=== PATIENT | female | born 1940 | race Two or more races ===

== ENCOUNTER 2023-09-21 10:25 | Inpatient (IN) | payer OTHER ==
[~2023-09-21] VITALS: Ht 147.3 cm; Wt 74.3 kg
[2023-09-21] MEDS: ONDANSETRON HCL 4 MG/2 ML VIAL IV ONE (10:43)
[2023-09-21] MEDS: MORPHINE SULFATE INJ 2 MG/ml SYRG IV ONE (10:49)
[2023-09-21 10:55] LABS: Basophils # (auto) 0 10 ^3/uL (0-0.2); Basophils % (auto) 0.3 % (0.0-2.0); Eosinophils # (auto) 0 10 ^3/uL (0-0.8); Eosinophils % (auto) 0.6 % (0.0-7.0); Hematocrit 45.3 % (36.0-46.0); Hemoglobin 15.1 g/dL (12.2-16.2); Lymphocytes % (auto) 12.4 % (10.0-50.0); Mean Corpuscular Hemoglobin 30.8 pg (28.0-32.0); Mean Corpuscular Hgb Conc. 33.2 g/dL (32.0-36.0); Mean Corpuscular Volume 92.5 fL (80.0-100.0); Monocytes # (auto) 0.4 10 ^3/uL (0-1.3); Monocytes % (auto) 5.4 % (0.0-12.0); Neutrophils # (auto) 6.5 10 ^3/uL (1.6-8.6); Neutrophils % (auto) 81.3 % (37.0-80.0); Red Cell Distribution Width 13.1 % (11.8-14.3)
[2023-09-21 11:02] LABS: Chloride 102 mmol/L (98-107); Potassium 4.2 mmol/L (3.5-5.1); Sodium 135 mmol/L (136-145)
[2023-09-21 11:03] LABS: Anion Gap 5 (5-15); Calcium 9.5 mg/dL (8.5-10.1); Carbon Dioxide 28 mmol/L (20-30)
[2023-09-21 11:08] LABS: BUN/Creatinine Ratio 13.2 (10.0-20.0); Blood Urea Nitrogen 12 mg/dL (9-23); Glucose 106 mg/dL (74-106); INR 0.97 (0.9-1.15); Partial Thromboplastin Time 26.1 SEC (24.5-34.5); Prothrombin Time 10.3 sec (9.3-11.8)
[2023-09-21 13:58] LABS: Urine Bacteria None Seen /hpf (None Seen)
[2023-09-21 14:06] LABS: Urine Blood Negative /uL (Negative); Urine Clarity Clear (Clear); Urine Color Light-Yellow (Yellow); Urine Protein, UAD Negative (Negative); Urine Urobilinogen Normal (Negative); Urine WBC 1 /hpf (0 - 5); Urine pH 5.5 (5.0-9.0)
[2023-09-21] MEDS ORDERED: KETOROLAC TROMETH 30 MG/ML 1ML VIAL IV PRN ×2 (17:00)
[2023-09-21] MEDS ORDERED: NITROGLYCERIN 0.4 MG SL TAB SL PRN ×3 (18:15→23:00)
[2023-09-21] MEDS: KETOROLAC TROMETH 30 MG/ML 1ML VIAL IV PRN (23:03)
[2023-09-21 23:48] VITALS: BP 136/57; PULSE 62; RESP 17; TEMP 98.6; O2SAT 94
[2023-09-22] VITALS (7 sets, daily range): BP systolic 114–151; BP diastolic 41–59; PULSE 49–84; RESP 17–18; TEMP 97.2–98.7; O2SAT 93–99
[2023-09-22] MEDS ORDERED: TRAZ-227 PO (00:27)
[2023-09-22] MEDS ORDERED: ASPI-543 PO (00:27)
[2023-09-22] MEDS ORDERED: SIMV10TA20 PO (00:27)
[2023-09-22] MEDS ORDERED: LISI40TA16 PO (00:35)
[2023-09-22] MEDS ORDERED: AMLO1TAB22 PO (00:35)
[2023-09-22] MEDS ORDERED: fentaNYL CITRATE 100 MCG/2 ML VL ONE (07:54)
[2023-09-22] MEDS ORDERED: MIDAZOLAM HCL 2MG/2ML 2ml VIAL (1mg/ml) ONE (07:55)
[2023-09-22] MEDS ORDERED: ceFAZolin 2 GM/D5W50ml 50 ML IV ONE (08:08)
[2023-09-22] MEDS: BUPIVACAINE 0.5% P/F INJ 10 ML VIAL ONE (09:05)
[2023-09-22] MEDS ORDERED: LIDOCAINE 1% INJ PF 5ML AMP ONE (09:20)
[2023-09-22] MEDS ORDERED: ePHEDrine SULFATE 50 MG/ML AMP ONE (09:26)
[2023-09-22] MEDS ORDERED: PHENYLEPHRINE HCL 10 MG/ML VL ONE (09:26)
[2023-09-22] MEDS ORDERED: BUPIVACAINE W/ EPINEPH 0.5% INJ 50ML MDV IJ ONE (09:43)
[2023-09-22] MEDS ORDERED: SODIUM CHLORIDE LOCK 10 ML ONE (09:48)
[2023-09-22] MEDS: LACTATED RINGER'S 1,000 ML IV SCH (12:08)
[2023-09-22] MEDS: ONDANSETRON HCL 4 MG/2 ML VIAL IV ONE (12:54)
[2023-09-22] MEDS: ceFAZolin 1GM/50ML 50 ML IV SCH (12:54)
[2023-09-22 14:35] LABS: Basophils # (auto) 0 10 ^3/uL (0-0.2); Basophils % (auto) 0.3 % (0.0-2.0); Eosinophils # (auto) 0.2 10 ^3/uL (0-0.8); Eosinophils % (auto) 2.2 % (0.0-7.0); Hematocrit 39.4 % (36.0-46.0); Hemoglobin 13.1 g/dL (12.2-16.2); Lymphocytes % (auto) 9.9 % (10.0-50.0); Mean Corpuscular Hemoglobin 30.9 pg (28.0-32.0); Mean Corpuscular Hgb Conc. 33.2 g/dL (32.0-36.0); Mean Corpuscular Volume 93.2 fL (80.0-100.0); Monocytes # (auto) 0.5 10 ^3/uL (0-1.3); Monocytes % (auto) 5.3 % (0.0-12.0); Neutrophils # (auto) 8.3 10 ^3/uL (1.6-8.6); Neutrophils % (auto) 82.3 % (37.0-80.0); Red Blood Cells 4.23 10^6/uL (4.0-5.20); Red Cell Distribution Width 13.2 % (11.8-14.3); White Blood Cell 10.1 10^3/uL (4.4-10.8)
[2023-09-22 14:53] LABS: Alanine Aminotransferase 19 U/L (7-40); Albumin 3.5 g/dL (3.2-4.8); Alkaline Phosphatase 92 U/L (46-116); Anion Gap 7 (5-15); Aspartate Aminotransferase 28 U/L (13-40); BUN/Creatinine Ratio 14.4 (10.0-20.0); Bilirubin, Total 0.6 mg/dL (0.2-1.0); Blood Urea Nitrogen 16 mg/dL (9-23); Calcium 8.6 mg/dL (8.5-10.1); Carbon Dioxide 27 mmol/L (20-30); Chloride 102 mmol/L (98-107); Glucose 135 mg/dL (74-106); Potassium 4.3 mmol/L (3.5-5.1); Sodium 136 mmol/L (136-145); Total Protein 5.9 g/dL (5.7-8.2)
[2023-09-22] MEDS: ENOXAPARIN SOD 30 MG/0.3 ML SYRINGE SC SCH (21:17)
[2023-09-23 01:00] VITALS: BP 105/58; PULSE 75; RESP 19; TEMP 98.5; O2SAT 97
[2023-09-23 05:00] VITALS: BP 104/56; PULSE 98; RESP 16; TEMP 98.1; O2SAT 98
[2023-09-23 06:24] LABS: Basophils # (auto) 0 10 ^3/uL (0-0.2); Basophils % (auto) 0.4 % (0.0-2.0); Eosinophils # (auto) 0.3 10 ^3/uL (0-0.8); Hematocrit 33.9 % (36.0-46.0); Hemoglobin 11.3 g/dL (12.2-16.2); Lymphocytes # (auto) 1.1 10 ^3/uL (0.4-5.4); Lymphocytes % (auto) 20.1 % (10.0-50.0); Mean Corpuscular Hemoglobin 31.3 pg (28.0-32.0); Mean Corpuscular Hgb Conc. 33.3 g/dL (32.0-36.0); Monocytes # (auto) 0.4 10 ^3/uL (0-1.3); Monocytes % (auto) 8.3 % (0.0-12.0); Neutrophils # (auto) 3.5 10 ^3/uL (1.6-8.6); Neutrophils % (auto) 66.2 % (37.0-80.0); Red Cell Distribution Width 12.9 % (11.8-14.3); White Blood Cell 5.3 10^3/uL (4.4-10.8)
[2023-09-23 06:46] LABS: Alanine Aminotransferase 13 U/L (7-40); Albumin 3.1 g/dL (3.2-4.8); Alkaline Phosphatase 77 U/L (46-116); Anion Gap 7 (5-15); Aspartate Aminotransferase 24 U/L (13-40); BUN/Creatinine Ratio 13.3 (10.0-20.0); Bilirubin, Total 0.3 mg/dL (0.2-1.0); Blood Urea Nitrogen 14 mg/dL (9-23); Calcium 8.2 mg/dL (8.7-10.4); Carbon Dioxide 23 mmol/L (20-30); Chloride 104 mmol/L (98-107); Glucose 129 mg/dL (74-106); Potassium 4.6 mmol/L (3.5-5.1); Sodium 134 mmol/L (136-145); Total Protein 5.4 g/dL (5.7-8.2)
[2023-09-23 07:53] VITALS: BP 130/62; PULSE 64; RESP 17; TEMP 97.7; O2SAT 98
[2023-09-23] MEDS: HYDROmorphone HCL 2 MG/ML VL/or syr IV PRN (09:49)
[2023-09-23 11:51] VITALS: BP 105/54; PULSE 69; RESP 17; TEMP 97.9; O2SAT 90
[2023-09-23 15:40] VITALS: BP 105/54; PULSE 69; RESP 18; TEMP 36.6; O2SAT 92
[2023-09-23 16:38] VITALS: BP 135/62; PULSE 64; RESP 16; TEMP 99.1; O2SAT 97
[2023-09-24] MEDS ORDERED: ENOXAPARIN SOD 30 MG/0.3 ML SYRINGE SC SCH (10:00)
== END 2023-09-23 17:15 | DRG 480 ==
LOC: ER 10:25 → EDBD 10:25 → OVERFLOW 18:04 → ER 18:04 → CENTRAL 22:23
PROVIDERS: ADMIT Student in an Organized Health Care Education/Training Program; ATTEND Student in an Organized Health Care Education/Training Program
PROC: 0QS734Z Reposition Left Upper Femur with Internal Fixation Device, Percutaneous Approach (ICD-10-PCS; principal; 2023-09-22 08:46)
DX: S72.142A Displaced intertrochanteric fracture of left femur, initial encounter for closed fracture (principal); J96.00 Acute respiratory failure, unspecified whether with hypoxia or hypercapnia; I12.9 Hypertensive chronic kidney disease with stage 1 through stage 4 chronic kidney disease, or unspecified chronic kidney disease; N18.2 Chronic kidney disease, stage 2 (mild); D25.9 Leiomyoma of uterus, unspecified; K40.90 Unilateral inguinal hernia, without obstruction or gangrene, not specified as recurrent; W18.39XA Other fall on same level, initial encounter; E78.5 Hyperlipidemia, unspecified; Z79.82 Long term (current) use of aspirin; Z79.899 Other long term (current) drug therapy; Z80.3 Family history of malignant neoplasm of breast; Y93.89 Activity, other specified; Y99.8 Other external cause status; Z87.81 Personal history of (healed) traumatic fracture; Y92.015 Private garage of single-family (private) house as the place of occurrence of the external cause
CPT/HCPCS: 36415; 71045; 73502; 73700; 76000; 80048; 80053; 81001; 85025; 85610; 85730; 86850; 86900; 86901; 96374; 96375; 97163; G0378; J1885; J2250; J2405; J3490